=== PATIENT | male | born 1980 | race Caucasian/White ===

== ENCOUNTER 2022-10-27 07:36 | Day surgery (SDC) | payer BC, MEDICAID ==
[~2022-10-27 07:36] MED LIST: Bupivacaine 0.5%/EPINEPHrine 1:200,000 50 ML MDV ONE
[2022-10-27] MEDS ORDERED: Acetaminophen 500 MG Tab PO ONE (08:00)
[2022-10-27] MEDS ORDERED: fentaNYL 250 MCG/5 ML SDV ONE ×2 (08:34→11:44)
[2022-10-27] MEDS ORDERED: Neostigmine Methylsulfate 1 MG/ML 5 ML Syringe ONE (08:35)
[2022-10-27] MEDS ORDERED: Succinylcholine 200 MG/10 ML MDV ONE (08:35)
[2022-10-27] MEDS ORDERED: Dexamethasone 4 MG/ML SDV ONE (08:35)
[2022-10-27] MEDS ORDERED: Ondansetron 4 MG/2 ML SDV ONE (08:35)
[2022-10-27] MEDS ORDERED: Rocuronium 50 MG/5 ML Vial ONE (08:35)
[2022-10-27] MEDS ORDERED: Glycopyrrolate 0.2 MG/ML 5 ML MDV ONE (08:35)
[2022-10-27] MEDS ORDERED: Propofol 200 MG/20 ML SDV ONE (08:35)
[2022-10-27] MEDS ORDERED: hydrALAZINE 20 MG/ML SDV ONE (08:39)
[2022-10-27] MEDS ORDERED: Lactated Ringers 0 ML ONE (08:39)
[2022-10-27] MEDS ORDERED: Lactated Ringers 1,000 ML IV SCH (09:00)
[2022-10-27] MEDS ORDERED: ceFAZolin 2 GM in Premix Bag 1 BAG IV ONE (10:30)
[2022-10-27] MEDS ORDERED: Ketorolac 30 MG/ML SDV ONE (12:26)
== END 2022-10-27 14:05 | disposition home or self-care (01) ==
LOC: JP.SDS 07:36
PROVIDERS: ATTEND Student in an Organized Health Care Education/Training Program
DX: D17.6 Benign lipomatous neoplasm of spermatic cord (principal); K40.90 Unilateral inguinal hernia, without obstruction or gangrene, not specified as recurrent; K21.9 Gastro-esophageal reflux disease without esophagitis; F32.A Depression, unspecified; F17.210 Nicotine dependence, cigarettes, uncomplicated
CPT/HCPCS: 49650; A9270; C1781; J0330; J0690; J1100; J1885; J2405; J2704; J2710; J3010; J3490; J7120; J0360